=== PATIENT | male | born 1965 | race Caucasian/White ===

== ENCOUNTER 2021-01-27 20:58 | Emergency (ER) | payer OTHER ==
[2021-01-27 21:06] VITALS: BP 170/79; PULSE 113; TEMP 98; BMI 28.5
[2021-01-27] MEDS ORDERED: SULFAMETHOXAZOLE/TRIMETHOPRIM 800MG/160MG D.S. TABLET PO ONE (23:21)
[2021-01-27] MEDS ORDERED: SULFAMETHOXAZOLE/TRIMETHOPRIM 800MG/160MG D.S. TABLET ONE ×2 (23:24→23:25)
[2021-01-27 23:30] LABS: HEMATOCRIT 46.6 % (35.4-49); MCH 33.2 pg (25.7-33.7); MCHC 34.4 g/dl (32.0-35.9); MEAN CELL VOLUME 96.7 fl (80-96); MEAN PLT VOLUME 9.5 fl (7.5-11.1); PLATELET COUNT 198 10^3/uL (134-434); RBC 4.82 M/mm3 (4.00-5.60); RDW 13.2 % (11.9-15.9); WHITE BLOOD COUNT 23.1 K/mm3 (4.0-10.0)
[2021-01-27] MEDS ORDERED: CLINDAMYCIN 600MG PREMIX IVPB 600 MG/50 ML BAG IVPB ONE ×2 (23:37→23:41)
[2021-01-28 01:29] LABS: ANISOCYTOSIS 0; HELMET CELLS 0; HOWELL-JOLLY BODIES 0; MACROCYTOSIS 0; OVALOCYTE 0; PLATELET ESTIMATE NORMAL; ROULEAU 0; SICKELED CELLS 0; TARGET CELLS 0; TEAR DROP CELLS 0; TOXIC GRANULATION 0
== END 2021-01-28 00:10 | disposition home or self-care (01) ==
LOC: JER 20:58
DX: L02.11 Cutaneous abscess of neck (principal); D72.828 Other elevated white blood cell count
CPT/HCPCS: 36415; 85025; 99284-25